=== PATIENT | male | born 1985 | race Caucasian/White ===

== ENCOUNTER 2019-10-23 18:24 | Emergency (ER) | payer MEDICAID ==
[~2019-10-23] VITALS: Ht 182.9 cm; Wt 100.0 kg
[~2019-10-23 18:24] MED LIST: CYCL-1 PO
[2019-10-23 18:27] VITALS: BP 138/93
[2019-10-23] MEDS ORDERED: ondansetron 4mg rapidly disintigrating tab PO ONE (18:50)
[2019-10-23] MEDS ORDERED: HYDROcodone/acetaminophen 5mg/325mg tablet PO ONE (18:50)
[2019-10-23] MEDS ORDERED: HYDR-4383 PO (18:52)
[2019-10-23] MEDS ORDERED: ONDA4TAB6 PO (18:52)
--- NOTE | 2019-10-23 19:15 | NUR ---
KULDEEP MARTINEZ AT BEDSIDE TO PLACE ULNAR GUNER SPLINT, AND SLING
== END 2019-10-23 19:23 | disposition home or self-care (01) ==
LOC: ER 18:24
DX: S62.394A Other fracture of fourth metacarpal bone, right hand, initial encounter for closed fracture (principal); Z98.890 Other specified postprocedural states; Z72.89 Other problems related to lifestyle; Z79.899 Other long term (current) drug therapy; W22.8XXA Striking against or struck by other objects, initial encounter; Y93.89 Activity, other specified; Y92.89 Other specified places as the place of occurrence of the external cause; Y99.8 Other external cause status
CPT/HCPCS: 29125; 73130; 99283